=== PATIENT | male | born 1965 | race Caucasian/White ===

== ENCOUNTER 2016-03-09 15:59 | Emergency (ER) | payer OTHER ==
--- NOTE | 2016-03-09 19:15 | ED NURSING NOTES ---
Clinical Report - Nurses [facility] [address] [place] [address] 03/09/2016 16:02 Patient: MARJORIE MITCHELL TRIAGE Triage time 16:46. Chief Complaint: SKIN LESION and . possible rectal abscess. Alert. --16:49 Nicole Fitzpatrick R.N. 16:46 03/09/16. BP: 136/85. HR: 95. RR: 18. O2 saturation: 98%. Temp: 98.3 F. Pain level now: 12/10. --16:49 Nicole Fitzpatrick R.N. Weight: 88.4 kg stated. Height/Length: 67.5 inches Per Patient. BMI: 30.1. --16:47 Nicole Fitzpatrick R.N. Medications MetFORMIN HCl Oral (Tablet 1000 mg) 2 tabs , am. --18:29 Zabrina Almanza R.N. Simvastatin Oral 10 mg, at bedtime. --18:30 Zabrina Almanza R.N. Flonase Nasal, as needed. --18:30 Zabrina Almanza R.N. aleve 1 tab at 1300. --18:31 Zabrina Almanza R.N. Allergies No Known Drug Allergy. --18:29 Zabrina Almanza R.N. History Arrived by private vehicle. Historian: patient. Accompanied by family. Primary physician (Dr Chapin). Reported as located on the perineum. Onset. (3 days ago). It is described as painful. --16:49 Nicole Fitzpatrick R.N. PAST MEDICAL HX: Diabetes mellitus. SURGERY HX: Dental surgery. SOCIAL HX: Light tobacco smoker (cigarette)- less than 1/2 a pack per day. Alcohol use; consumes three wine weekly. --18:32 Zabrina Almanza R.N. PHYSICAL ASSESSMENT 16:40. Ambulatory to room. Patient gowned. GENERAL / NEURO / PSYCH: Alert. The patient does not appear to be in acute distress. Oriented X 4. HEENT: Mucous membranes are pink. RESPIRATORY: Respirations not labored. SKIN: Skin is warm and dry. --18:33 Zabrina Almanza R.N. correction to prior entry -PT PLACED IN ROOM AT 1840 [id number]. --20:37 Zabrina Almanza R.N. NURSING PROGRESS NOTES 16:40. Patient gowned. Head of bed elevated. Reassurance given. Patient identifiers checked. Call light placed in reach. Side rails up. Bed placed in lowest position. Patient ready for evaluation- chart flagged. --18:32 Zabrina Almanza R.N. correction to prior entry -pt placed in room at 1840, not 1640. --20:36 Zabrina Almanza R.N. DISPOSITION / DISCHARGE 19:45. Condition at departure: unchanged and stable. No learning barriers present. Discharge instructions provided and reviewed with the patient and spouse. Reviewed medication(s) (percocet, anusol). Patient and spouse verbalized understanding. Written instructions provided in Surinamese. The patient was discharged home and accompanied by spouse. He left the Emergency Department ambulatory and via private vehicle. Spouse driving. --20:35 Zabrina Almanza R.N. 19:45 03/09/16. BP: 129/73. HR: 72. RR: 18. O2 saturation: 97%. Temp: deferred. Pain level now: 11/10. --20:35 Zabrina Almanza R.N. Locked/Released at 03/09/2016 20:49 by Zabrina Almanza R.N.
--- NOTE | 2016-03-09 19:15 | ED CLINICAL REPORT ---
Clinical Report - Physicians/Mid Levels [facility] [address] [place] [address] 03/09/2016 16:02 Patient: MARJORIE MITCHELL Time Seen: 19:03. Arrived- By private vehicle. Historian- patient. HISTORY OF PRESENT ILLNESS Chief Complaint: RECTAL PAIN. This started 6 days ago after a hard BM 7 days ago. Much worse 2 days ago., has been moderate (to severe) and is still present. It was gradual in onset. The patient has had rectal pain, constipation and hard stools but not had rectal bleeding. No nausea or vomiting. Similar symptoms previously: Twice. REVIEW OF SYSTEMS No fever, cough, difficulty breathing or chest pain. PAST HISTORY PCP: Dr Tavares [place] Ops: None Hosp: None Illness: DM. SOCIAL HISTORY Current every day smoker. ADDITIONAL NOTES The nursing notes have been reviewed. PHYSICAL EXAM Vital Signs: 03/09/2016 19:45 BP: 129/73. HR: 72. RR: 18. O2 saturation: 97%. Pain level now: 9/10. 03/09/2016 16:46 BP: 136/85. HR: 95. RR: 18. O2 saturation: 98%. Temp: 98.3 F. Pain level now: 10/10. Appearance: Alert. Patient in mild distress. CVS: Heart sounds normal. Respiratory: Breath sounds normal. Abdomen: Soft. Rectal: (Pt has a sentinel pile at 12 oclock. (posterior midline). The is no external hemorrhoid.). PROGRESS AND PROCEDURES Course of Care: History and exam are most consistent with a rectal fissure although there is a possibility of a fistula in ano. Disposition: Discharged. Condition: stable. CLINICAL IMPRESSION Acute anal fissure INSTRUCTIONS Do not work for five days. (LOTS OF BULK LAXITIVES - METAMUCIL DONT HESITATE TO USE MILK OF MAGNESIA THERE IS SOME POSIBILITY THIS COULD BE FISTULA IN ANO SO FOLLOW UP IS ESSENTIAL). Prescription Medications: Oxycodone/APAP 5 mg/325 mg: take 1 tablet orally every 4 hours as needed for pain. Dispense fifteen (15). No refill. Anusol-HC 25 mg suppositories: insert 1 suppository into the rectum every 12 hours for 5 days. Dispense ten (10). Follow-up: Follow up with your doctor in five days. Understanding of the discharge instructions verbalized by patient. (Electronically signed by Floerntino Ayala MD 03/11/2016 22:59)
--- NOTE | 2016-03-09 19:15 | ED CLINICAL REPORT ---
Clinical Report - Physicians/Mid Levels [facility] [address] [place] [address] 03/09/2016 16:02 Patient: MARJORIE MITCHELL Time Seen: 19:03. Arrived- By private vehicle. Historian- patient. HISTORY OF PRESENT ILLNESS Chief Complaint: RECTAL PAIN. This started 6 days ago after a hard BM 7 days ago. Much worse 2 days ago., has been moderate (to severe) and is still present. It was gradual in onset. The patient has had rectal pain, constipation and hard stools but not had rectal bleeding. No nausea or vomiting. Similar symptoms previously: Twice. REVIEW OF SYSTEMS No fever, cough, difficulty breathing or chest pain. PAST HISTORY PCP: Dr Tavares [place] Ops: None Hosp: None Illness: DM. SOCIAL HISTORY Current every day smoker. ADDITIONAL NOTES The nursing notes have been reviewed. PHYSICAL EXAM Vital Signs: 03/09/2016 19:45 BP: 129/73. HR: 72. RR: 18. O2 saturation: 97%. Pain level now: 9/10. 03/09/2016 16:46 BP: 136/85. HR: 95. RR: 18. O2 saturation: 98%. Temp: 98.3 F. Pain level now: 10/10. Appearance: Alert. Patient in mild distress. CVS: Heart sounds normal. Respiratory: Breath sounds normal. Abdomen: Soft. Rectal: (Pt has a sentinel pile at 12 oclock. (posterior midline). The is no external hemorrhoid.). PROGRESS AND PROCEDURES Course of Care: History and exam are most consistent with a rectal fissure although there is a possibility of a fistula in ano. Disposition: Discharged. Condition: stable. CLINICAL IMPRESSION Acute anal fissure INSTRUCTIONS Do not work for five days. (LOTS OF BULK LAXITIVES - METAMUCIL DONT HESITATE TO USE MILK OF MAGNESIA THERE IS SOME POSIBILITY THIS COULD BE FISTULA IN ANO SO FOLLOW UP IS ESSENTIAL). Prescription Medications: Oxycodone/APAP 5 mg/325 mg: take 1 tablet orally every 4 hours as needed for pain. Dispense fifteen (15). No refill. Anusol-HC 25 mg suppositories: insert 1 suppository into the rectum every 12 hours for 5 days. Dispense ten (10). Follow-up: Follow up with your doctor in five days. Understanding of the discharge instructions verbalized by patient. (Electronically signed by Florentino Ayala MD 03/11/2016 22:59)
--- NOTE | 2016-03-09 19:15 | ED NURSING NOTES ---
Clinical Report - Nurses [facility] [address] [place] [address] 03/09/2016 16:02 Patient: MARJORIE MITCHELL TRIAGE Triage time 16:46. Chief Complaint: SKIN LESION and . possible rectal abscess. Alert. --16:49 Nicole Fitzpatrick R.N. 16:46 03/09/16. BP: 136/85. HR: 95. RR: 18. O2 saturation: 98%. Temp: 98.3 F. Pain level now: 12/10. --16:49 Nicole Fitzpatrick R.N. Weight: 88.4 kg stated. Height/Length: 67.5 inches Per Patient. BMI: 30.1. --16:47 Nicole Fitzpatrick R.N. Medications MetFORMIN HCl Oral (Tablet 1000 mg) 2 tabs , am. --18:29 Zabrina Almanza R.N. Simvastatin Oral 10 mg, at bedtime. --18:30 Zabrina Almanza R.N. Flonase Nasal, as needed. --18:30 Zabrina Almanza R.N. aleve 1 tab at 1300. --18:31 Zabrina Almanza R.N. Allergies No Known Drug Allergy. --18:29 Zabrina Almanza R.N. History Arrived by private vehicle. Historian: patient. Accompanied by family. Primary physician (Dr Chapin). Reported as located on the perineum. Onset. (3 days ago). It is described as painful. --16:49 Nicole Fitzpatrick R.N. PAST MEDICAL HX: Diabetes mellitus. SURGERY HX: Dental surgery. SOCIAL HX: Light tobacco smoker (cigarette)- less than 1/2 a pack per day. Alcohol use; consumes three wine weekly. --18:32 Zabrina Almanza R.N. PHYSICAL ASSESSMENT 16:40. Ambulatory to room. Patient gowned. GENERAL / NEURO / PSYCH: Alert. The patient does not appear to be in acute distress. Oriented X 4. HEENT: Mucous membranes are pink. RESPIRATORY: Respirations not labored. SKIN: Skin is warm and dry. --18:33 Zabrina Almanza R.N. correction to prior entry -PT PLACED IN ROOM AT 1840 [id number]. --20:37 Zabrina Almanza R.N. NURSING PROGRESS NOTES 16:40. Patient gowned. Head of bed elevated. Reassurance given. Patient identifiers checked. Call light placed in reach. Side rails up. Bed placed in lowest position. Patient ready for evaluation- chart flagged. --18:32 Zabrina Almanza R.N. correction to prior entry -pt placed in room at 1840, not 1640. --20:36 Zabrina Almanza R.N. DISPOSITION / DISCHARGE 19:45. Condition at departure: unchanged and stable. No learning barriers present. Discharge instructions provided and reviewed with the patient and spouse. Reviewed medication(s) (percocet, anusol). Patient and spouse verbalized understanding. Written instructions provided in Kenyan. The patient was discharged home and accompanied by spouse. He left the Emergency Department ambulatory and via private vehicle. Spouse driving. --20:35 Zabrina Almanza R.N. 19:45 03/09/16. BP: 129/73. HR: 72. RR: 18. O2 saturation: 97%. Temp: deferred. Pain level now: 11/10. --20:35 Zabrina Almanza R.N. Locked/Released at 03/09/2016 20:49 by Zabrina Almanza R.N.
--- NOTE | 2016-03-11 23:00 | ED DISCHARGE INSTRUCTIONS ---
Patient: MARJORIE MITCHELL General Instructions [facility] VisitID: [id number] [place] [address] 50y, M Registration Date/Time: 03/09/2016 Acute anal fissure INSTRUCTIONS Do not work for five days. (LOTS OF BULK LAXITIVES - METAMUCIL DONT HESITATE TO USE MILK OF MAGNESIA THERE IS SOME POSIBILITY THIS COULD BE FISTULA IN ANO SO FOLLOW UP IS ESSENTIAL). Prescription Medications: Oxycodone/APAP 5 mg/325 mg: take 1 tablet orally every 4 hours as needed for pain. Dispense fifteen (15). No refill. Anusol-HC 25 mg suppositories: insert 1 suppository into the rectum every 12 hours for 5 days. Dispense ten (10). Follow-up: Follow up with your doctor in five days. Understanding of the discharge instructions verbalized by patient. ADDITIONAL INFORMATION Anal Fissure (Child) The anal canal is the end portion of the intestinal tract. It includes the rectum and anus. Feces are passed through the anus. Sometimes a crack or tear develops in the lining of the anal canal. This condition is called an anal fissure. An anal fissure may occur inside or outside the body. It may cause pain and bright red bleeding, especially during a bowel movement. Sometimes there is swelling, itching, and skin irritation. The area may spasm, causing more pain and skin separation. Anal fissures are caused by local trauma to the anal canal. This can be due to insertion of an object into the anal canal, or by constipation or severe diarrhea. Anal fissures usually heal on their own and require no special care. Sometimes a cream is applied to soothe the area. Pain medications, stool softeners, and glycerin suppositories may be prescribed. Warm baths may relax the anus, making it easier to have a bowel movement. Once the area has healed, the doctor may want to check the intestinal tract with a small, flexible tube (endoscope). Occasionally a fissure does not heal on its own. In those rare cases, surgery is needed to close the tear. Home Care: Medications: The doctor may prescribe a pain medication, stool softener, or laxative to make it easier for your child to have a bowel movement. Follow the doctors instructions when giving these medications to your child. General Care: Feed your child fresh fruits and vegetables to ensure smooth bowel movements. Encourage your child to drink lots of water. If your child is often constipated, ask your healthcare provider about giving your child fiber supplements. Have your child soak in a warm bath prior to having a bowel movement. This will help relax the muscles and soothe any pain. Keep a careful record of when your child has a bowel movement and the type of feces that were passed. This may help your doctor determine future care for your child. Older children should be encouraged to keep their own record. Check your faiza anus for bleeding or signs of infection (see below). Follow Up as advised by the doctor or our staff. Special Notes To Parents: Wash your hands well with soap and warm water before and after caring for the fissure to avoid causing infection. Get Prompt Medical Attention if any of the following occurs: Fever greater than 100.4F (38C) Signs of infection such as increased redness or swelling or foul-smelling drainage Abnormal bowel patterns including constipation, hard stools, or explosive diarrhea Continued rectal bleeding, pain, or itching Oxycodone Hydrochloride, Acetaminophen Oral tablet What is this medicine? ACETAMINOPHEN; OXYCODONE (a set a ROSALBA benoit fen; ox i KOE done) is a pain reliever. It is used to treat mild to moderate pain. How should I use this medicine? Take this medicine by mouth with a full glass of water. Follow the directions on the prescription label. Take your medicine at regular intervals. Do not take your medicine more often than directed. Talk to your administrative office manager regarding the use of this medicine in children. Special care may be needed. Patients over 65 years old may have a stronger reaction and need a smaller dose. What side effects may I notice from receiving this medicine? Side effects that you should report to your doctor or health lawn care technician as soon as possible: allergic reactions like skin rash, itching or hives, swelling of the face, lips, or tongue breathing difficulties, wheezing confusion light headedness or fainting spells severe stomach pain yellowing of the skin or the whites of the eyes Side effects that usually do not require medical attention (report to your doctor or health lawn care technician if they continue or are bothersome): dizziness drowsiness nausea vomiting What may interact with this medicine? alcohol antihistamines barbiturates like amobarbital, butalbital, butabarbital, methohexital, pentobarbital, phenobarbital, thiopental, and secobarbital benztropine drugs for bladder problems like solifenacin, trospium, oxybutynin, tolterodine, hyoscyamine, and methscopolamine drugs for breathing problems like ipratropium and tiotropium drugs for certain stomach or intestine problems like propantheline, homatropine methylbromide, glycopyrrolate, atropine, belladonna, and dicyclomine general anesthetics like etomidate, ketamine, nitrous oxide, propofol, desflurane, enflurane, halothane, isoflurane, and sevoflurane medicines for depression, anxiety, or psychotic disturbances medicines for sleep muscle relaxants naltrexone narcotic medicines (opiates) for pain phenothiazines like perphenazine, thioridazine, chlorpromazine, mesoridazine, fluphenazine, prochlorperazine, promazine, and trifluoperazine scopolamine tramadol trihexyphenidyl What if I miss a dose? If you miss a dose, take it as soon as you can. If it is almost time for your next dose, take only that dose. Do not take double or extra doses. Where should I keep my medicine? Keep out of the reach of children. This medicine can be abused. Keep your medicine in a safe place to protect it from theft. Do not share this medicine with anyone. Selling or giving away this medicine is dangerous and against the law. Store at room temperature between 20 and 25 degrees C (68 and 77 degrees F). Keep container tightly closed. Protect from light. This medicine may cause accidental overdose and if it is taken by other adults, children, or pets. Flush any unused medicine down the toilet to reduce the chance of harm. Do not use the medicine after the expiration date. What should I tell my health care provider before I take this medicine? They need to know if you have any of these conditions: brain tumor Crohn's disease, inflammatory bowel disease, or ulcerative colitis drink more than 3 alcohol containing drinks per day drug abuse or addiction head injury heart or circulation problems kidney disease or problems going to the bathroom liver disease lung disease, asthma, or breathing problems an unusual or allergic reaction to acetaminophen, oxycodone, other opioid analgesics, other medicines, foods, dyes, or preservatives or trying to get breast-feeding What should I watch for while using this medicine? Tell your doctor or health lawn care technician if your pain does not go away, if it gets worse, or if you have new or a different type of pain. You may develop tolerance to the medicine. Tolerance means that you will need a higher dose of the medication for pain relief. Tolerance is normal and is expected if you take this medicine for a long time. Do not suddenly stop taking your medicine because you may develop a severe reaction. Your body becomes used to the medicine. This does NOT mean you are addicted. Addiction is a behavior related to getting and using a drug for a non-medical reason. If you have pain, you have a medical reason to take pain medicine. Your doctor will tell you how much medicine to take. If your doctor wants you to stop the medicine, the dose will be slowly lowered over time to avoid any side effects. You may get drowsy or dizzy. Do not drive, use machinery, or do anything that needs mental alertness until you know how this medicine affects you. Do not stand or sit up quickly, especially if you are an older patient. This reduces the risk of dizzy or fainting spells. Alcohol may interfere with the effect of this medicine. Avoid alcoholic drinks. There are different types of narcotic medicines (opiates) for pain. If you take more than one type at the same time, you may have more side effects. Give your health care provider a list of all medicines you use. Your doctor will tell you how much medicine to take. Do not take more medicine than directed. Call emergency for help if you have problems breathing. The medicine will cause constipation. Try to have a bowel movement at least every 2 to 3 days. If you do not have a bowel movement for 3 days, call your doctor or health lawn care technician. Do not take Tylenol (acetaminophen) or medicines that have acetaminophen with this medicine. Too much acetaminophen can be very dangerous. Many nonprescription medicines contain acetaminophen. Always read the labels carefully to avoid taking more acetaminophen. You have been given the following additional information: Anal Fissure (Child) Oxycodone Hydrochloride, Acetaminophen Oral tablet Do not work for five days. (Electronically signed by Florentino Ayala MD 03/11/2016 22:59)
--- NOTE | 2016-03-11 23:00 | ED MAR SUMMARY ---
..... Medication Administration Record [facility] [address] [place] [id number] Patient: MARJORIE MITCHELL Visit ID: [id number] 50y, M Weight: 88.4 kg Height/Length: 67.5 in BMI: 30.1 ALLERGIES: No Known Drug Allergy
--- NOTE | 2016-03-11 23:00 | ED MED RECONCILIATION SUMMARY ---
Patient: MARJORIE MITCHELL Medication Reconciliation Report [facility] VisitID: [id number] [address] [place] [address] 50y, M Registration Date/Time: 03/09/2016 Weight: 88.4 kg Height/Length: 60 in. BMI: 30.1 ALLERGIES: No Known Drug Allergy The patient's Home Medications are listed below: THE FOLLOWING MEDICATIONS NEED TO BE RECONCILED: aleve 1 tab at 1300 Flonase Nasal MetFORMIN HCl Oral (1000 mg) 2 tabs , am Simvastatin Oral 10 mg, at bedtime The source(s) of the original Home Medication information: Not obtained. The following Medications were given to the patient in the Emergency Department: None. The following Medications were prescribed to the patient: Oxycodone/APAP 5 mg/325 mg: take 1 tablet orally every 4 hours as needed for pain. Dispense fifteen (15). No refill. -- Florentino Ayala MD Anusol-HC 25 mg suppositories: insert 1 suppository into the rectum every 12 hours for 5 days. Dispense ten (10). -- Florentino Ayala MD
--- NOTE | 2016-03-11 23:00 | ED MAR SUMMARY ---
..... Medication Administration Record [facility] [address] [place] [id number] Patient: MARJORIE MITCHELL Visit ID: [id number] 50y, M Weight: 88.4 kg Height/Length: 67.5 in BMI: 30.1 ALLERGIES: No Known Drug Allergy
--- NOTE | 2016-03-11 23:00 | ED MED RECONCILIATION SUMMARY ---
Patient: MARJORIE MITCHELL Medication Reconciliation Report [facility] VisitID: [id number] [address] [place] [address] 50y, M Registration Date/Time: 03/09/2016 Weight: 88.4 kg Height/Length: 60 in. BMI: 30.1 ALLERGIES: No Known Drug Allergy The patient's Home Medications are listed below: THE FOLLOWING MEDICATIONS NEED TO BE RECONCILED: aleve 1 tab at 1300 Flonase Nasal MetFORMIN HCl Oral (1000 mg) 2 tabs , am Simvastatin Oral 10 mg, at bedtime The source(s) of the original Home Medication information: Not obtained. The following Medications were given to the patient in the Emergency Department: None. The following Medications were prescribed to the patient: Oxycodone/APAP 5 mg/325 mg: take 1 tablet orally every 4 hours as needed for pain. Dispense fifteen (15). No refill. -- Florentino Ayala MD Anusol-HC 25 mg suppositories: insert 1 suppository into the rectum every 12 hours for 5 days. Dispense ten (10). -- Florentino Ayala MD
== END 2016-03-09 19:45 | disposition home or self-care (01) ==
LOC: ED SRH 15:59
DX: K60.0 Acute anal fissure (principal); E11.9 Type 2 diabetes mellitus without complications; Z79.84 Long term (current) use of oral hypoglycemic drugs; F17.210 Nicotine dependence, cigarettes, uncomplicated